=== PATIENT | female | born 1975 | race Caucasian/White ===

== ENCOUNTER 2017-08-04 13:39 | Emergency (ER) | payer BC ==
[2017-08-04 13:44] VITALS: RESP 18; TEMP 97.2
[2017-08-04 14:46] LABS: Basophils % (A) 0 %; Eosinophils # (A) 0.1 k/uL (0-0.7); Eosinophils % (A) 0 %; HCT 43.3 % (34.0-46.0); HGB 14.3 gm/dL (11.4-16.0); Lymphocytes # (A) 1.2 k/uL (1.0-4.8); Lymphocytes % (A) 8 %; MCH 30.1 pg (25.0-35.0); MCV 91.4 fL (80.0-100.0); Mean Platelet Volume 7.8; Monocytes # (A) 0.6 k/uL (0-1.0); Monocytes % (A) 4 %; Neutrophils # (A) 12.7 k/uL (1.3-7.7); Neutrophils % (A) 87 %; Platelet Count 241 k/uL (150-450); RBC 4.74 m/uL (3.80-5.40); RDW 12.8 % (11.5-15.5); WBC 14.6 k/uL (3.8-10.6)
--- NOTE | 2017-08-04 14:46 | XR ---
EXAMINATION TYPE: XR chest 2V DATE OF EXAM: 08/04/2017 COMPARISON: NONE HISTORY: Chest pain and shortness of breath TECHNIQUE: Frontal and lateral views of the chest are obtained. FINDINGS: There is no focal air space opacity, pleural effusion, or pneumothorax seen. The cardiac silhouette size is within normal limits. There is a slight spinal curvature. The osseous structures are intact. IMPRESSION: No acute cardiopulmonary process.
[2017-08-04 14:55] LABS: ALT 21 U/L (9-52); AST 29 U/L (14-36); Albumin 4.7 g/dL (3.5-5.0); Alkaline Phosphatase 53 U/L (38-126); Anion Gap 15 mmol/L; Blood Urea Nitrogen 19 mg/dL (7-17); Calcium 9.9 mg/dL (8.4-10.2); Carbon Dioxide 20 mmol/L (22-30); Chloride 103 mmol/L (98-107); Glucose 100 mg/dL (74-99); Potassium 4.6 mmol/L (3.5-5.1); Sodium 138 mmol/L (137-145); Total Bilirubin 0.6 mg/dL (0.2-1.3); Total Protein 7.6 g/dL (6.3-8.2)
[2017-08-04 15:02] LABS: INR 1.1 (<1.2); Partial Thromboplastin Time 21.6 sec (22.0-30.0); Prothrombin Time 10.4 sec (9.0-12.0)
[2017-08-04] MEDS ORDERED: SODIUM CHLORIDE 0.9% 1,000 ML IV ONE (15:16)
--- NOTE | 2017-08-04 15:29 | ED ---
General Adult HPI - General Chief complaint: Chest Pain Stated complaint: Chest Pain, SOB Time Seen by Provider: 08/04/17 15:09 Source: patient, RN notes reviewed Mode of arrival: wheelchair Limitations: no limitations - History of Present Illness Initial comments: 42-year-old female presenting for evaluation of chest pain. Patient is otherwise healthy, no chronic medical issues. She was at the gym today doing a fairly intense exercise, she developed some anterior chest pain. Pain was nonradiating. She was feeling somewhat dyspneic at the time. States she left the gym secondary to his symptoms, on her way home she did feel lightheaded, she had bilateral upper extremity numbness and tingling, and when she went home she had near syncopal episode. Patient states he exercises was quite intense, she is also on a herbal cleansing diet at this time. She states she has been eating and drinking normally. No significant preceding vomiting or diarrhea. No history of fever. She did have a mild sore throat yesterday which is resolved. Patient is currently not on any medication. She denies any lower extremity swelling, no calf tenderness, no abdominal pain. Chest pain and dysuria is improving at the time my evaluation. - Related Data Home Medications Medication Instructions Recorded Confirmed Parastroy Detox Cleanser 2 cap PO BID 08/04/17 08/04/17 Allergies Allergy/AdvReac Type Severity Reaction Status Date / Time No Known Allergies Allergy Verified 08/04/17 15:20 Review of Systems ROS Statement: Those systems with pertinent positive or pertinent negative responses have been documented in the HPI. ROS Other: All systems not noted in ROS Statement are negative. Past Medical History Past Medical History: No Reported History History of Any Multi-Drug Resistant Organisms: None Reported Past Surgical History: Breast Surgery Additional Past Surgical History / Comment(s): wisdom teeth removed 2007, patient had a D&C and a breast biopsy. Past Anesthesia/Blood Transfusion Reactions: No Reported Reaction Past Psychological History: Depression Smoking Status: Former smoker Past Alcohol Use History: Occasional Past Drug Use History: None Reported General Exam Limitations: no limitations General appearance: alert, in no apparent distress Head exam: Present: atraumatic, normocephalic Eye exam: Present: normal appearance, PERRL, EOMI ENT exam: Present: mucous membranes dry Neck exam: Present: normal inspection. Absent: tenderness, meningismus Respiratory exam: Present: normal lung sounds bilaterally. Absent: respiratory distress, wheezes Cardiovascular Exam: Present: regular rate, other (Bilateral symmetric radial pulse.). Absent: normal rhythm GI/Abdominal exam: Present: soft. Absent: distended, tenderness Extremities exam: Present: normal inspection, normal capillary refill. Absent: pedal edema, calf tenderness Neurological exam: Present: alert, oriented X3, CN II-XII intact. Absent: motor sensory deficit Psychiatric exam: Present: normal affect, normal mood Skin exam: Present: warm, dry, intact. Absent: cyanosis, diaphoretic Course Vital Signs 08/04/17 08/04/17 13:41 16:15 Temperature 97.2 F L Pulse Rate 78 59 L Respiratory 18 18 Rate Blood Pressure 126/74 115/64 O2 Sat by Pulse 98 98 Oximetry - Reevaluation(s) Reevaluation #1: 08/04/17 16:50 On reevaluation, patient is chest pain-free without treatment, no dyspnea, stable vital signs. EKG Findings - EKG Comments: EKG Findings:: EKG shows normal sinus rhythm, rightward axis, ventricular rate of 60, MD interval 142, QS duration 76, QTC 425, no ST segment elevation or depression, no T-wave abnormality. Medical Decision Making - Medical Decision Making 42-year-old female presents for evaluation of chest pain dyspnea and near syncope. Patient is currently on a herbal cleanse designed to destroy intestinal parasites. She does report loose stools. While exercising today she developed some central chest pain with dyspnea and had an episode of near syncope at home. Laboratory studies reveal mild elevated white blood cell count likely secondary to exertion worse infection. Hemoglobin stable, d-dimer is negative. CO2 20 which is mildly low. Troponin negative, CK is 199, urinalysis shows 1+ ketones, urine test is negative, influenza negative. Chest x-ray shows no acute intrathoracic findings. Patient feels better in the emergency department without treatment. She is given IV hydration for signs of dehydration. She will return with any worsening or changing symptoms. She will return with development of exertional chest pain or chest pain at rest. She is given outpatient PCP follow-up. - Lab Data Result diagrams: 08/04/17 14:26 08/04/17 14:26 Lab Results 08/04/17 08/04/17 08/04/17 Range/Units 14:26 14:26 14:26 WBC 14.6 H (3.8-10.6) k/uL RBC 4.74 (3.80-5.40) m/uL Hgb 14.3 (11.4-16.0) gm/dL Hct 43.3 (34.0-46.0) % MCV 91.4 (80.0-100.0) fL MCH 30.1 (25.0-35.0) pg MCHC 33.0 (31.0-37.0) g/dL RDW 12.8 (11.5-15.5) % Plt Count 241 (150-450) k/uL Neutrophils % 87 % Lymphocytes % 8 % Monocytes % 4 % Eosinophils % 0 % Basophils % 0 % Neutrophils # 12.7 H (1.3-7.7) k/uL Lymphocytes # 1.2 (1.0-4.8) k/uL Monocytes # 0.6 (0-1.0) k/uL Eosinophils # 0.1 (0-0.7) k/uL Basophils # 0.0 (0-0.2) k/uL PT (9.0-12.0) sec INR (<1.2) APTT (22.0-30.0) sec D-Dimer (<0.60) mg/L FEU Sodium 138 (137-145) mmol/L Potassium 4.6 (3.5-5.1) mmol/L Chloride 103 (98-107) mmol/L Carbon Dioxide 20 L (22-30) mmol/L Anion Gap 15 mmol/L BUN 19 H (7-17) mg/dL Creatinine 0.83 (0.52-1.04) mg/dL Est GFR (CKD-EPI)AfAm >90 (>60 ml/min/1.73 sqM) Est GFR (CKD-EPI)NonAf 88 (>60 ml/min/1.73 sqM) Glucose 100 H (74-99) mg/dL Calcium 9.9 (8.4-10.2) mg/dL Total Bilirubin 0.6 (0.2-1.3) mg/dL AST 29 (14-36) U/L ALT 21 (9-52) U/L Alkaline Phosphatase 53 (38-126) U/L Total Creatine Kinase 199 H (30-135) U/L CK-MB (CK-2) 1.5 (0.0-2.4) ng/mL CK-MB (CK-2) Rel Index 0.8 Troponin I <0.012 (0.000-0.034) ng/mL Total Protein 7.6 (6.3-8.2) g/dL Albumin 4.7 (3.5-5.0) g/dL Urine Color Urine Appearance (Clear) Urine pH (5.0-8.0) Ur Specific [place] (1.001-1.035) Urine Protein (Negative) Urine Glucose (UA) (Negative) Urine Ketones (Negative) Urine Blood (Negative) Urine Nitrite (Negative) Urine Bilirubin (Negative) Urine Urobilinogen (<2.0) mg/dL Ur Leukocyte Esterase (Negative) Urine HCG, Qual (Not Detectd) Influenza Type A RNA (Not Detectd) Influenza Type B (PCR) (Not Detectd) 08/04/17 08/04/17 08/04/17 Range/Units 14:26 14:26 15:35 WBC (3.8-10.6) k/uL RBC (3.80-5.40) m/uL Hgb (11.4-16.0) gm/dL Hct (34.0-46.0) % MCV (80.0-100.0) fL MCH (25.0-35.0) pg MCHC (31.0-37.0) g/dL RDW (11.5-15.5) % Plt Count (150-450) k/uL Neutrophils % % Lymphocytes % % Monocytes % % Eosinophils % % Basophils % % Neutrophils # (1.3-7.7) k/uL Lymphocytes # (1.0-4.8) k/uL Monocytes # (0-1.0) k/uL Eosinophils # (0-0.7) k/uL Basophils # (0-0.2) k/uL PT 10.4 (9.0-12.0) sec INR 1.1 (<1.2) APTT 21.6 L (22.0-30.0) sec D-Dimer 0.38 (<0.60) mg/L FEU Sodium (137-145) mmol/L Potassium (3.5-5.1) mmol/L Chloride (98-107) mmol/L Carbon Dioxide (22-30) mmol/L Anion Gap mmol/L BUN (7-17) mg/dL Creatinine (0.52-1.04) mg/dL Est GFR (CKD-EPI)AfAm (>60 ml/min/1.73 sqM) Est GFR (CKD-EPI)NonAf (>60 ml/min/1.73 sqM) Glucose (74-99) mg/dL Calcium (8.4-10.2) mg/dL Total Bilirubin (0.2-1.3) mg/dL AST (14-36) U/L ALT (9-52) U/L Alkaline Phosphatase (38-126) U/L Total Creatine Kinase (30-135) U/L CK-MB (CK-2) (0.0-2.4) ng/mL CK-MB (CK-2) Rel Index Troponin I (0.000-0.034) ng/mL Total Protein (6.3-8.2) g/dL Albumin (3.5-5.0) g/dL Urine Color Urine Appearance (Clear) Urine pH (5.0-8.0) Ur Specific [place] (1.001-1.035) Urine Protein (Negative) Urine Glucose (UA) (Negative) Urine Ketones (Negative) Urine Blood (Negative) Urine Nitrite (Negative) Urine Bilirubin (Negative) Urine Urobilinogen (<2.0) mg/dL Ur Leukocyte Esterase (Negative) Urine HCG, Qual Not Detected (Not Detectd) Influenza Type A RNA (Not Detectd) Influenza Type B (PCR) (Not Detectd) 08/04/17 08/04/17 Range/Units 15:35 16:10 WBC (3.8-10.6) k/uL RBC (3.80-5.40) m/uL Hgb (11.4-16.0) gm/dL Hct (34.0-46.0) % MCV (80.0-100.0) fL MCH (25.0-35.0) pg MCHC (31.0-37.0) g/dL RDW (11.5-15.5) % Plt Count (150-450) k/uL Neutrophils % % Lymphocytes % % Monocytes % % Eosinophils % % Basophils % % Neutrophils # (1.3-7.7) k/uL Lymphocytes # (1.0-4.8) k/uL Monocytes # (0-1.0) k/uL Eosinophils # (0-0.7) k/uL Basophils # (0-0.2) k/uL PT (9.0-12.0) sec INR (<1.2) APTT (22.0-30.0) sec D-Dimer (<0.60) mg/L FEU Sodium (137-145) mmol/L Potassium (3.5-5.1) mmol/L Chloride (98-107) mmol/L Carbon Dioxide (22-30) mmol/L Anion Gap mmol/L BUN (7-17) mg/dL Creatinine (0.52-1.04) mg/dL Est GFR (CKD-EPI)AfAm (>60 ml/min/1.73 sqM) Est GFR (CKD-EPI)NonAf (>60 ml/min/1.73 sqM) Glucose (74-99) mg/dL Calcium (8.4-10.2) mg/dL Total Bilirubin (0.2-1.3) mg/dL AST (14-36) U/L ALT (9-52) U/L Alkaline Phosphatase (38-126) U/L Total Creatine Kinase (30-135) U/L CK-MB (CK-2) (0.0-2.4) ng/mL CK-MB (CK-2) Rel Index Troponin I (0.000-0.034) ng/mL Total Protein (6.3-8.2) g/dL Albumin (3.5-5.0) g/dL Urine Color Yellow Urine Appearance Clear (Clear) Urine pH 5.5 (5.0-8.0) Ur Specific [place] 1.014 (1.001-1.035) Urine Protein Negative (Negative) Urine Glucose (UA) Negative (Negative) Urine Ketones 1+ H (Negative) Urine Blood Negative (Negative) Urine Nitrite Negative (Negative) Urine Bilirubin Negative (Negative) Urine Urobilinogen <2.0 (<2.0) mg/dL Ur Leukocyte Esterase Negative (Negative) Urine HCG, Qual (Not Detectd) Influenza Type A RNA Not Detected (Not Detectd) Influenza Type B (PCR) Not Detected (Not Detectd) Disposition Clinical Impression: Chest pain, Dehydration, Near syncope Disposition: HOME SELF-CARE Condition: Good Instructions: Chest Pain (ED), Near Syncope (ED), Dehydration (ED) Referrals: None,Stated [Primary Care Provider] - 1-2 days Robyn Clancy MD [STAFF PHYSICIAN] - 1-2 days Time of Disposition: 16:53
[2017-08-04 15:31] LABS: Creatine Kinase 199 U/L (30-135)
[2017-08-04 15:39] LABS: Creatine Kinase MB 1.5 ng/mL (0.0-2.4)
[2017-08-04 15:44] LABS: Troponin I <0.012 ng/mL (0.000-0.034)
[2017-08-04 16:06] LABS: Appearance,Urine Clear (Clear); Bilirubin,Urine Negative (Negative); Blood,Urine Negative (Negative); Color,Urine Yellow; Glucose,Urine (UA) Negative (Negative); Ketones,Urine 1+ (Negative); Leukocyte Esterase,Urine Negative (Negative); Nitrite,Urine Negative (Negative); PH, Urine 5.5 (5.0-8.0); Protein,Urine Negative (Negative); Specific Gravity,Urine 1.014 (1.001-1.035); Urobilinogen,Urine <2.0 mg/dL (<2.0)
[2017-08-04 17:17] VITALS: BP 117/59; PULSE 57
== END 2017-08-04 17:15 | disposition home or self-care (01) ==
LOC: EC 13:39
DX: E86.0 Dehydration (principal); R07.9 Chest pain, unspecified; R55 Syncope and collapse; D72.829 Elevated white blood cell count, unspecified; R06.00 Dyspnea, unspecified; R20.2 Paresthesia of skin; R30.0 Dysuria; Z87.891 Personal history of nicotine dependence
CPT/HCPCS: 36415; 71046; 80053; 81003; 81025; 82550; 82553; 84484; 85025; 85379; 85610; 85730; 87502; 93005; 96360; 99285

== ENCOUNTER 2018-02-04 15:02 | Emergency (ER) | payer BC ==
[2018-02-04] MEDS ORDERED: SODIUM CHLORIDE 0.9% 1,000 ML IV STA (15:33)
[2018-02-04 15:54] LABS: Basophils % (A) 0 %; Eosinophils # (A) 0.1 k/uL (0-0.7); Eosinophils % (A) 2 %; HCT 42.2 % (34.0-46.0); HGB 14.3 gm/dL (11.4-16.0); Lymphocytes # (A) 1.8 k/uL (1.0-4.8); Lymphocytes % (A) 30 %; MCH 31.7 pg (25.0-35.0); MCV 93.2 fL (80.0-100.0); Mean Platelet Volume 7.5; Monocytes # (A) 0.3 k/uL (0-1.0); Monocytes % (A) 6 %; Neutrophils # (A) 3.6 k/uL (1.3-7.7); Neutrophils % (A) 60 %; Platelet Count 193 k/uL (150-450); RBC 4.52 m/uL (3.80-5.40); RDW 12.6 % (11.5-15.5)
[2018-02-04 16:03] LABS: ALT 22 U/L (9-52); AST 22 U/L (14-36); Albumin 4.5 g/dL (3.5-5.0); Alkaline Phosphatase 42 U/L (38-126); Anion Gap 10 mmol/L; Blood Urea Nitrogen 14 mg/dL (7-17); Calcium 9.6 mg/dL (8.4-10.2); Carbon Dioxide 25 mmol/L (22-30); Chloride 106 mmol/L (98-107); Glucose 84 mg/dL (74-99); Lipase 156 U/L (23-300); Magnesium 1.9 mg/dL (1.6-2.3); Potassium 3.9 mmol/L (3.5-5.1); Sodium 141 mmol/L (137-145); Total Bilirubin 0.7 mg/dL (0.2-1.3); Total Protein 7.4 g/dL (6.3-8.2)
[2018-02-04 16:08] LABS: D-Dimer 0.23 mg/L FEU (<0.60); INR 1.1 (<1.2); Partial Thromboplastin Time 24.2 sec (22.0-30.0); Prothrombin Time 10.8 sec (9.0-12.0)
[2018-02-04 16:13] LABS: Creatine Kinase 58 U/L (30-135)
[2018-02-04 16:26] LABS: Creatine Kinase MB 0.5 ng/mL (0.0-2.4); Troponin I <0.012 ng/mL (0.000-0.034)
--- NOTE | 2018-02-04 16:30 | XR ---
EXAMINATION TYPE: XR chest 2V DATE OF EXAM: 02/04/2018 COMPARISON: 08/04/2017 HISTORY: Chest pain TECHNIQUE: Frontal and lateral views of the chest are obtained. FINDINGS: There is no focal air space opacity. No evidence for pneumothorax. No pleural effusion. The cardiac silhouette size is within normal limits. The osseous structures are grossly intact. IMPRESSION: 1. No acute cardiopulmonary process.
[2018-02-04 16:50] VITALS: RESP 16
--- NOTE | 2018-02-04 16:50 | ED ---
General Adult HPI - General Chief complaint: Dizziness Stated complaint: chest tightness/dizziness-sent by [employer] Time Seen by Provider: 02/04/18 15:28 Source: patient Mode of arrival: ambulatory Limitations: no limitations - Related Data Home Medications Medication Instructions Recorded Confirmed No Known Home Medications 02/04/18 02/04/18 Allergies Allergy/AdvReac Type Severity Reaction Status Date / Time No Known Allergies Allergy Verified 02/04/18 15:19 Review of Systems ROS Statement: Those systems with pertinent positive or pertinent negative responses have been documented in the HPI. ROS Other: All systems not noted in ROS Statement are negative. Past Medical History Past Medical History: No Reported History History of Any Multi-Drug Resistant Organisms: None Reported Past Surgical History: Breast Surgery Additional Past Surgical History / Comment(s): wisdom teeth removed 2007, patient had a D&C and a breast biopsy. Past Anesthesia/Blood Transfusion Reactions: No Reported Reaction Past Psychological History: Depression Smoking Status: Former smoker Past Alcohol Use History: Occasional Past Drug Use History: None Reported General Exam Limitations: no limitations General appearance: alert, in no apparent distress Head exam: Present: atraumatic, normocephalic, normal inspection Eye exam: Present: normal appearance, PERRL, EOMI. Absent: scleral icterus, conjunctival injection, periorbital swelling ENT exam: Present: normal exam, mucous membranes moist Neck exam: Present: normal inspection. Absent: tenderness, meningismus, lymphadenopathy Respiratory exam: Present: normal lung sounds bilaterally. Absent: respiratory distress, wheezes, rales, rhonchi, stridor Cardiovascular Exam: Present: regular rate, normal rhythm, normal heart sounds. Absent: systolic murmur, diastolic murmur, rubs, gallop, clicks GI/Abdominal exam: Present: soft, normal bowel sounds. Absent: distended, tenderness, guarding, rebound, rigid Extremities exam: Present: normal inspection, full ROM, normal capillary refill. Absent: tenderness, pedal edema, joint swelling, calf tenderness Back exam: Present: normal inspection Neurological exam: Present: alert, oriented X3, CN II-XII intact Psychiatric exam: Present: normal affect, normal mood Skin exam: Present: warm, dry, intact, normal color. Absent: rash Course Vital Signs 02/04/18 02/04/18 15:04 16:49 Temperature 98.2 F Pulse Rate 67 66 Respiratory 18 16 Rate Blood Pressure 139/73 149/56 O2 Sat by Pulse 99 99 Oximetry EKG Findings - EKG Comments: EKG Findings:: EKG shows sinus bradycardia rate 56 [place] 138 QRS 80 QTC 418 Medical Decision Making - Lab Data Result diagrams: 02/04/18 15:40 02/04/18 15:40 Lab Results 02/04/18 02/04/18 02/04/18 Range/Units 15:40 15:40 15:40 WBC 6.0 (3.8-10.6) k/uL RBC 4.52 (3.80-5.40) m/uL Hgb 14.3 (11.4-16.0) gm/dL Hct 42.2 (34.0-46.0) % MCV 93.2 (80.0-100.0) fL MCH 31.7 (25.0-35.0) pg MCHC 34.0 (31.0-37.0) g/dL RDW 12.6 (11.5-15.5) % Plt Count 193 (150-450) k/uL Neutrophils % 60 % Lymphocytes % 30 % Monocytes % 6 % Eosinophils % 2 % Basophils % 0 % Neutrophils # 3.6 (1.3-7.7) k/uL Lymphocytes # 1.8 (1.0-4.8) k/uL Monocytes # 0.3 (0-1.0) k/uL Eosinophils # 0.1 (0-0.7) k/uL Basophils # 0.0 (0-0.2) k/uL PT (9.0-12.0) sec INR (<1.2) APTT (22.0-30.0) sec D-Dimer (<0.60) mg/L FEU Sodium 141 (137-145) mmol/L Potassium 3.9 (3.5-5.1) mmol/L Chloride 106 (98-107) mmol/L Carbon Dioxide 25 (22-30) mmol/L Anion Gap 10 mmol/L BUN 14 (7-17) mg/dL Creatinine 0.83 (0.52-1.04) mg/dL Est GFR (CKD-EPI)AfAm >90 (>60 ml/min/1.73 sqM) Est GFR (CKD-EPI)NonAf 88 (>60 ml/min/1.73 sqM) Glucose 84 (74-99) mg/dL Calcium 9.6 (8.4-10.2) mg/dL Magnesium 1.9 (1.6-2.3) mg/dL Total Bilirubin 0.7 (0.2-1.3) mg/dL AST 22 (14-36) U/L ALT 22 (9-52) U/L Alkaline Phosphatase 42 (38-126) U/L Total Creatine Kinase 58 (30-135) U/L CK-MB (CK-2) 0.5 (0.0-2.4) ng/mL CK-MB (CK-2) Rel Index 0.9 Troponin I <0.012 (0.000-0.034) ng/mL Total Protein 7.4 (6.3-8.2) g/dL Albumin 4.5 (3.5-5.0) g/dL Lipase 156 (23-300) U/L 02/04/18 Range/Units 15:40 WBC (3.8-10.6) k/uL RBC (3.80-5.40) m/uL Hgb (11.4-16.0) gm/dL Hct (34.0-46.0) % MCV (80.0-100.0) fL MCH (25.0-35.0) pg MCHC (31.0-37.0) g/dL RDW (11.5-15.5) % Plt Count (150-450) k/uL Neutrophils % % Lymphocytes % % Monocytes % % Eosinophils % % Basophils % % Neutrophils # (1.3-7.7) k/uL Lymphocytes # (1.0-4.8) k/uL Monocytes # (0-1.0) k/uL Eosinophils # (0-0.7) k/uL Basophils # (0-0.2) k/uL PT 10.8 (9.0-12.0) sec INR 1.1 (<1.2) APTT 24.2 (22.0-30.0) sec D-Dimer 0.23 (<0.60) mg/L FEU Sodium (137-145) mmol/L Potassium (3.5-5.1) mmol/L Chloride (98-107) mmol/L Carbon Dioxide (22-30) mmol/L Anion Gap mmol/L BUN (7-17) mg/dL Creatinine (0.52-1.04) mg/dL Est GFR (CKD-EPI)AfAm (>60 ml/min/1.73 sqM) Est GFR (CKD-EPI)NonAf (>60 ml/min/1.73 sqM) Glucose (74-99) mg/dL Calcium (8.4-10.2) mg/dL Magnesium (1.6-2.3) mg/dL Total Bilirubin (0.2-1.3) mg/dL AST (14-36) U/L ALT (9-52) U/L Alkaline Phosphatase (38-126) U/L Total Creatine Kinase (30-135) U/L CK-MB (CK-2) (0.0-2.4) ng/mL CK-MB (CK-2) Rel Index Troponin I (0.000-0.034) ng/mL Total Protein (6.3-8.2) g/dL Albumin (3.5-5.0) g/dL Lipase (23-300) U/L Disposition Clinical Impression: Chest pain, Anxiety Disposition: HOME SELF-CARE Condition: Good Instructions: Dizziness (ED), Chest Pain (ED) Is patient prescribed a controlled substance at d/c from ED?: No Referrals: None,Stated [Primary Care Provider] - 1-2 days
--- NOTE | 2018-02-04 18:35 | CT ---
EXAMINATION TYPE: CT angio chest DATE OF EXAM: 02/04/2018 6:15 PM COMPARISON: None HISTORY: c/o chest tightness, discomfot, dizziness CT DLP: 191.4 mGycm Automated exposure control for dose reduction was used. CONTRAST: CTA scan of the thorax is performed with IV Contrast, patient injected with 60 mL of Isovue 370, pulm onary embolism protocol. There are 3-D post processed images.. FINDINGS: The lungs are clear of infiltrate. There is no pleural effusion. There is no pericardial effusion. He art size is normal. Thoracic aorta appears normal without evidence of aneurysm or dissection. There a re no hilar masses. There is no mediastinal adenopathy. There is normal contrast opacification of the pulmonary arteries. There are no filling defects. The b joshua thorax is intact. I see no bony destructive process. Upper abdominal soft tissues are unremarkabl e. IMPRESSION: NORMAL EXAM. NO EVIDENCE OF PULMONARY EMBOLISM.
[2018-02-04 19:02] VITALS: BP 129/69; PULSE 60; TEMP 98
== END 2018-02-04 19:00 | disposition home or self-care (01) ==
LOC: EC 15:02
DX: R07.89 Other chest pain (principal); F41.9 Anxiety disorder, unspecified; R42 Dizziness and giddiness; Z87.891 Personal history of nicotine dependence
CPT/HCPCS: 36415; 93005; 85379; 80053; 82550; 82553; 83690; 83735; 84484; 85025; 85610; 85730; 71046; 71275; 99284; 96360; Q9967

== ENCOUNTER → 2018-06-24 | Outpatient (CLI) | payer BC ==
--- NOTE | 2018-06-28 09:26 | MM ---
Reason for exam: screening (asymptomatic). Last mammogram was performed 6 years and 4 months ago. History: Patient had first child at age 33. Family history of breast cancer in maternal grandmother. Benign excisional biopsy of the right breast, 2012. Physical Findings: A clinical breast exam by your physician is recommended on an annual basis and results should be correlated with mammographic findings. MG 3D Screening Mammo W/Cad Bilateral CC and MLO view(s) were taken. Prior study comparison: February 24, 2012, mammogram, performed at [facility]. February 17, 2012, mammogram, performed at [facility]. The breast tissue is heterogeneously dense. This may lower the sensitivity of mammography. Previous mammotome biopsy in the right breast. Asymmetric densities left breast particularly medially do not persist on 3D. No significant changes when compared with prior studies. ASSESSMENT: Negative, BI-RAD 1 RECOMMENDATION: Routine screening mammogram of both breasts in 1 year. Patient should continue monthly self breast exams. A negative report should not preclude additional follow up of suspicious palpable abnormalities. Manage on a clinical basis with regard to right breast pain.
== END | disposition home or self-care (01) ==
LOC: RADMAMWWP 15:38
PROVIDERS: ATTEND Obstetrics & Gynecology
DX: Z12.31 Encounter for screening mammogram for malignant neoplasm of breast (principal)
CPT/HCPCS: 77063; 77067

== ENCOUNTER 2018-10-10 00:57 | Emergency (ER) | payer BC ==
[2018-10-10] MEDS ORDERED: KETOROLAC 30 MG/ML 1 ML VIAL IVP STA (01:36)
[2018-10-10] MEDS ORDERED: DEXAMETHASONE SOD PHOSPHATE 10 MG/ML 1 ML VIAL IV STA (01:36)
[2018-10-10] MEDS ORDERED: SODIUM CHLORIDE 0.9% 1,000 ML IV ONE (01:36)
[2018-10-10 02:04] LABS: Basophils % (A) 0 %; Eosinophils # (A) 0.2 k/uL (0-0.7); Eosinophils % (A) 4 %; HGB 13.2 gm/dL (11.4-16.0); Lymphocytes # (A) 1.8 k/uL (1.0-4.8); Lymphocytes % (A) 37 %; MCHC 32.3 g/dL (31.0-37.0); MCV 92.7 fL (80.0-100.0); Mean Platelet Volume 7.5; Monocytes # (A) 0.3 k/uL (0-1.0); Monocytes % (A) 7 %; Neutrophils # (A) 2.4 k/uL (1.3-7.7); Neutrophils % (A) 50 %; Platelet Count 211 k/uL (150-450); RBC 4.42 m/uL (3.80-5.40); RDW 12.9 % (11.5-15.5); WBC 4.8 k/uL (3.8-10.6)
[2018-10-10 02:25] LABS: ALT 17 U/L (9-52); AST 19 U/L (14-36); Alkaline Phosphatase 48 U/L (38-126); Anion Gap 8 mmol/L; Blood Urea Nitrogen 17 mg/dL (7-17); Calcium 9.1 mg/dL (8.4-10.2); Carbon Dioxide 25 mmol/L (22-30); Chloride 109 mmol/L (98-107); Glucose 99 mg/dL (74-99); Potassium 4.1 mmol/L (3.5-5.1); Sodium 142 mmol/L (137-145); Total Bilirubin 0.3 mg/dL (0.2-1.3); Total Protein 6.6 g/dL (6.3-8.2)
--- NOTE | 2018-10-10 02:42 | CT ---
EXAM: CT Head Without Intravenous Contrast CLINICAL HISTORY: ITS.REASON CT Reason: Pain TECHNIQUE: Axial computed tomography images of the head/brain without intravenous contrast. CTDI is 45 mGy and DLP is 992 mGy-cm. This CT exam was performed using one or more of the following dose reduction techniques: automated exposure control, adjustment of the mA and/or kV according to patient size, and/or use of iterative reconstruction technique. COMPARISON: No relevant prior studies available. FINDINGS: Brain: No hemorrhage, large hypodensity, or mass effect. Ventricles: No hydrocephalus. Bones/joints: Unremarkable. Soft tissues: Unremarkable. Sinuses: Unremarkable. Mastoid air cells: Clear. IMPRESSION: No acute hemorrhage, hydrocephalus, or mass effect. EXAM: CT Cervical Spine Without Intravenous Contrast CLINICAL HISTORY: ITS.REASON CT Reason: Pain TECHNIQUE: Axial computed tomography images of the cervical spine without intravenous contrast. CTDI is 11 mGy and DLP is 337 mGy-cm. This CT exam was performed using one or more of the following dose reduction techniques: automated exposure control, adjustment of the mA and/or kV according to patient size, and/or use of iterative reconstruction technique. COMPARISON: No relevant prior studies available. FINDINGS: Vertebrae: No acute fracture. Discs/spinal canal/neural foramina: No high grade spinal canal stenosis. Soft tissues: Unremarkable. IMPRESSION: No acute fracture or subluxation.
--- NOTE | 2018-10-10 02:45 | ED ---
Headache HPI <Nick Hallman - Last Filed: 10/10/18 06:22> <Jose David Leslie - Last Filed: 10/10/18 08:27> - General Mode of arrival: ambulatory Limitations: no limitations <Zuleyma David - Last Filed: 10/12/18 05:51> - General Chief Complaint: Headache Stated Complaint: Headache Time Seen by Provider: 10/10/18 01:29 - History of Present Illness Initial Comments: 43-year-old female patient presents to the emergency department today for evaluation of headache and neck pain. Patient states she has had the headache for the last week. Patient states that the pain is located in the posterior head and radiates down into the neck. Patient states that as time has progressed that headache is becoming worse. She states on Wednesday she did feel nauseated and unwell. States she felt feverish and chilled however did not elvis ck her temperature. She states tonight while lying in bed prior to coming in she felt numbness and tingling to the bilateral hands. States that the sensation has improved however she still feels some numbness. She denies any light or sound sensitivity. Denies any blurred or double vision with this. Patient denies history of headache or migraine headache. Denies any recent travel. Denies any head injury. Patient denies any recent rash, shortness breath, chest pain, abdominal pain, diarrhea, constipation, back pain, dizziness, weakness, hematuria, dysuria, urinary urgency, urinary frequency, or any other complaints. (Zuleyma David) - Related Data Home Medications Medication Instructions Recorded Confirmed No Known Home Medications 02/04/18 10/11/18 Allergies Allergy/AdvReac Type Severity Reaction Status Date / Time No Known Allergies Allergy Verified 10/11/18 14:39 Review of Systems ROS Other: All systems not noted in ROS Statement are negative. <Nick Hallman - Last Filed: 10/10/18 06:22> ROS Other: All systems not noted in ROS Statement are negative. <Jose David Leslie - Last Filed: 10/10/18 08:27> ROS Other: All systems not noted in ROS Statement are negative. <Zuleyma David - Last Filed: 10/12/18 05:51> ROS Statement: Those systems with pertinent positive or pertinent negative responses have been documented in the HPI. Past Medical History Past Medical History: No Reported History, Syncope History of Any Multi-Drug Resistant Organisms: None Reported Past Surgical History: Breast Surgery Additional Past Surgical History / Comment(s): wisdom teeth removed 2007, patient had a D&C and a breast biopsy. Past Anesthesia/Blood Transfusion Reactions: No Reported Reaction Past Psychological History: Depression Smoking Status: Former smoker Past Alcohol Use History: Occasional Past Drug Use History: None Reported <Zuleyma David M - Last Filed: 10/12/18 05:51> General Exam Limitations: no limitations General appearance: alert, in no apparent distress, other (Physical well- developed, well-nourished adult female patient in no acute distress. Vital signs upon presentation are temperature 97.3F, pulse 79, respirations 17, blood pressure 135/77, pulse ox 98% on room air.) Eye exam: Present: normal appearance, PERRL, EOMI. Absent: scleral icterus, conjunctival injection, nystagmus, periorbital swelling ENT exam: Present: normal exam, normal oropharynx, mucous membranes moist, TM's normal bilaterally Neck exam: Present: normal inspection, full ROM. Absent: tenderness, meningismus, lymphadenopathy Respiratory exam: Present: normal lung sounds bilaterally. Absent: respiratory distress, wheezes, rales, rhonchi, stridor Cardiovascular Exam: Present: regular rate, normal rhythm, normal heart sounds. Absent: systolic murmur, diastolic murmur, rubs, gallop, clicks GI/Abdominal exam: Present: soft, normal bowel sounds. Absent: distended, tenderness, guarding, rebound, rigid Neurological exam: Present: alert, oriented X3, CN II-XII intact, other (Strength in all four extremities is 5/5.) Psychiatric exam: Present: normal affect, normal mood Skin exam: Present: warm, dry, intact, normal color. Absent: rash <Zuleyma David M - Last Filed: 10/12/18 05:51> Course Vital Signs 10/10/18 10/10/18 10/10/18 01:00 08:15 08:35 Temperature 97.3 F L 98.6 F Pulse Rate 79 62 Respiratory 17 18 Rate Blood Pressure 135/77 121/67 O2 Sat by Pulse 98 95 Oximetry Procedures - Lumbar Puncture Consent Obtained: verbal consent, written consent Indication for Procedure: headache, R/o SA bleed Patient Position: sitting upright/leaning forward Skin Prep: 0.5% Chlorhexidine/Alcohol Local Anesthetic Used: Lidocaine 1% Spinal Needle Gauge: 20G Spinal Needle Length: 3.5in Interspace Used: L4-L5 Fluid Initially Obtained: bloody Complications: none, traumatic tap Patient Tolerated Procedure: well, no complications <Nick Hallman - Last Filed: 10/10/18 06:22> Medical Decision Making - Lab Data Result diagrams: 10/10/18 01:47 10/10/18 01:47 <Nick Hallman - Last Filed: 10/10/18 06:22> - Lab Data Result diagrams: 10/10/18 01:47 10/10/18 01:47 <Jose David Leslie - Last Filed: 10/10/18 08:27> - Lab Data Result diagrams: 10/10/18 01:47 10/10/18 01:47 <Zuleyma David - Last Filed: 10/12/18 05:51> - Medical Decision Making 43 year-old female patient presented to the emergency department for evaluation of headache and neck pain which has been present for one week. Physical exam is unremarkable she is neurologically intact with no focal deficits. Labs reviewed and were unremarkable. CT brain and cspine was unremarkable. Patient does report improvement of symptoms with medication. We did discuss lumbar puncture including risks and benefits of the procedure. Patient would like to have this test done. My attending Dr. Hallman will take over care of patient at 0500. He will perform the procedure and monitor. (Zuleyma David) - Lab Data Lab Results 10/10/18 10/10/18 10/10/18 Range/Units 01:47 01:47 06:18 WBC 4.8 (3.8-10.6) k/uL RBC 4.42 (3.80-5.40) m/uL Hgb 13.2 (11.4-16.0) gm/dL Hct 41.0 (34.0-46.0) % MCV 92.7 (80.0-100.0) fL MCH 30.0 (25.0-35.0) pg MCHC 32.3 (31.0-37.0) g/dL RDW 12.9 (11.5-15.5) % Plt Count 211 (150-450) k/uL Neutrophils % 50 % Lymphocytes % 37 % Monocytes % 7 % Eosinophils % 4 % Basophils % 0 % Neutrophils # 2.4 (1.3-7.7) k/uL Lymphocytes # 1.8 (1.0-4.8) k/uL Monocytes # 0.3 (0-1.0) k/uL Eosinophils # 0.2 (0-0.7) k/uL Basophils # 0.0 (0-0.2) k/uL Sodium 142 (137-145) mmol/L Potassium 4.1 (3.5-5.1) mmol/L Chloride 109 H (98-107) mmol/L Carbon Dioxide 25 (22-30) mmol/L Anion Gap 8 mmol/L BUN 17 (7-17) mg/dL Creatinine 0.80 (0.52-1.04) mg/dL Est GFR (CKD-EPI)AfAm >90 (>60 ml/min/1.73 sqM) Est GFR (CKD-EPI)NonAf >90 (>60 ml/min/1.73 sqM) Glucose 99 (74-99) mg/dL Calcium 9.1 (8.4-10.2) mg/dL Total Bilirubin 0.3 (0.2-1.3) mg/dL AST 19 (14-36) U/L ALT 17 (9-52) U/L Alkaline Phosphatase 48 (38-126) U/L Total Protein 6.6 (6.3-8.2) g/dL Albumin 4.0 (3.5-5.0) g/dL CSF Tube Number 4 CSF Volume 2.0 CSF Appearance CLEAR CSF Color COLORLESS CSF RBC 13 H (0-10) u/L CSF Tot Nucleated Cells 0 (0-5) u/L CSF Fresh RBCs 100 % CSF Glucose 57 (40-70) mg/dL CSF Total Protein 57 (12-60) mg/dL Disposition <Nick Hallman - Last Filed: 10/10/18 06:22> Is patient prescribed a controlled substance at d/c from ED?: No Time of Disposition: 08:28 <Jose David Leslie - Last Filed: 10/10/18 08:27> <Zuleyma David - Last Filed: 10/12/18 05:51> Clinical Impression: Headache Disposition: HOME SELF-CARE Condition: Stable Instructions (If sedation given, give patient instructions): Acute Headache (ED) Additional Instructions: Please return to the Emergency Department if symptoms worsen or any other concerns. Referrals: None,Stated [Primary Care Provider] - 1-2 days Silvio Felix MD [STAFF PHYSICIAN] - 1-2 days Marcello Flores DO [STAFF PHYSICIAN] - 1-2 days
[2018-10-10] MEDS ORDERED: LIDOCAINE 1% INJ 10MG/ML (20 ML MDV) SQ ONE (04:31)
[2018-10-10] MEDS ORDERED: METOCLOPRAMIDE 5 MG/ML 2 ML VIAL IVP STA (06:22)
[2018-10-10] MEDS ORDERED: diphenhydrAMINE 50 MG/ML 1 ML VIAL IVP STA (06:22)
[2018-10-10 06:54] LABS: Glucose,CSF 57 mg/dL (40-70); Total Protein,CSF 57 mg/dL (12-60)
[2018-10-10 07:16] LABS: Appearance,CSF CLEAR; CSF Tube Number 4; Nucleated Cells, CSF 0 u/L (0-5); Red Blood Cell,CSF 13 u/L (0-10)
[2018-10-10 07:17] LABS: Red Blood Cell, CSF Fresh 100 %
[2018-10-10 08:19] VITALS: BP 121/67; PULSE 62; RESP 18
[2018-10-10 08:51] VITALS: TEMP 98.6
[2018-10-11] MEDS ORDERED: CAFFEINE-SODIUM BENZOATE 500 MG in SODIUM CHLORIDE 0.9% 1,000 ML IVPB ONE (16:00)
== END 2018-10-10 08:35 | disposition home or self-care (01) ==
LOC: EC 00:57
DX: R51 Headache (principal); M54.2 Cervicalgia; R20.0 Anesthesia of skin; R50.9 Fever, unspecified; Z87.891 Personal history of nicotine dependence; Z53.29 Procedure and treatment not carried out because of patient's decision for other reasons
CPT/HCPCS: 36415; 84157; 80053; 82945; 85025; 89050; 87070; 87205; 87801; 72125; 70450; 99284; 62270; 96374; 96375 ×3; 96361 ×6; J1200; J1100; J2765; J1885

== ENCOUNTER 2018-10-11 13:56 | Emergency (ER) | payer BC ==
[2018-10-11] MEDS ORDERED: ONDANSETRON 4 MG/2 ML VIAL ONE (15:45)
[2018-10-11] MEDS ORDERED: diphenhydrAMINE 50 MG/ML 1 ML VIAL ONE (15:45)
[2018-10-11] MEDS ORDERED: CAFFEINE ONE (16:00)
[2018-10-11] MEDS ORDERED: SODIUM CHLORIDE 0.9% 1,000 ML BAG ONE (16:00)
[2018-10-11] MEDS ORDERED: SODIUM BENZOATE ONE (16:00)
[2018-10-11] MEDS ORDERED: SODIUM CHLORIDE 0.9% 500 ML BAG ONE (16:00)
[2018-10-11] MEDS ORDERED: HYDROmorphone 0.5 MG/0.5 ML SYRINGE IVP STA (17:42)
[2018-10-11 19:22] VITALS: BP 149/75; PULSE 56; RESP 17; TEMP 98.1
== END 2018-10-11 19:22 ==
LOC: EC 13:56
DX: G97.1 Other reaction to spinal and lumbar puncture (principal); Z79.1 Long term (current) use of non-steroidal anti-inflammatories (NSAID)
CPT/HCPCS: 99283; 96365; 96375 ×3; J1200; J2405; J1170

== ENCOUNTER 2018-10-13 11:51 | Observation (INO) | payer BC ==
[2018-10-13] MEDS ORDERED: CAFFEINE-SODIUM BENZOATE 500 MG in SODIUM CHLORIDE 0.9% 1,000 ML IVPB ONE (12:11)
[2018-10-13] MEDS ORDERED: diphenhydrAMINE 50 MG/ML 1 ML VIAL IVP STA (12:13)
[2018-10-13] MEDS ORDERED: METOCLOPRAMIDE 5 MG/ML 2 ML VIAL IVP STA (12:13)
--- NOTE | 2018-10-13 12:15 | ED ---
Headache HPI - General Source: patient, family, RN notes reviewed Mode of arrival: wheelchair Limitations: no limitations <Jose David Leslie - Last Filed: 10/13/18 14:15> <Fuentes Romero - Last Filed: 10/15/18 11:07> - General Chief Complaint: Headache Stated Complaint: spinal headache Time Seen by Provider: 10/13/18 12:00 - History of Present Illness Initial Comments: This a 43-year-old female presents emergency Department chief complaint of headache. Patient was seen here in emergency department twice last few days. Patient did have a lumbar puncture. Patient had lab work which is old and negative. Patient was seen by neurologist today and sent here for blood patch. Patient's headache is positional. He has much worse when she stands up. She has nausea no vomiting she does have mild light sensitivity. No fevers or chills. Denies any neck stiffness. Patient did receive injections shot by ne urologist. Patient was seen here 2 days ago for this headache and which she received caffeine and fluids with no relief (Jose David Leslie) - Related Data Home Medications Medication Instructions Recorded Confirmed No Known Home Medications 02/04/18 10/11/18 Allergies Allergy/AdvReac Type Severity Reaction Status Date / Time No Known Allergies Allergy Verified 10/13/18 11:57 Review of Systems ROS Other: All systems not noted in ROS Statement are negative. <Jose David Leslie - Last Filed: 10/13/18 14:15> ROS Other: All systems not noted in ROS Statement are negative. <Fuentes Romero - Last Filed: 10/15/18 11:07> ROS Statement: Those systems with pertinent positive or pertinent negative responses have been documented in the HPI. Past Medical History Past Medical History: No Reported History, Syncope Additional Past Medical History / Comment(s): migraine headaches History of Any Multi-Drug Resistant Organisms: None Reported Past Surgical History: Breast Surgery Additional Past Surgical History / Comment(s): wisdom teeth removed 2007, patient had a D&C and a breast biopsy. Past Anesthesia/Blood Transfusion Reactions: No Reported Reaction Past Psychological History: Depression Smoking Status: Former smoker Past Alcohol Use History: Occasional Past Drug Use History: None Reported <Jose David Leslie - Last Filed: 10/13/18 14:15> General Exam Limitations: no limitations General appearance: alert, in no apparent distress Head exam: Present: atraumatic, normocephalic, normal inspection Eye exam: Present: normal appearance, PERRL, EOMI. Absent: scleral icterus, co njunctival injection, periorbital swelling ENT exam: Present: normal exam, mucous membranes moist Neck exam: Present: normal inspection, full ROM. Absent: tenderness, meningismus, lymphadenopathy Respiratory exam: Present: normal lung sounds bilaterally. Absent: respiratory distress, wheezes, rales, rhonchi, stridor Cardiovascular Exam: Present: regular rate, normal rhythm, normal heart sounds. Absent: systolic murmur, diastolic murmur, rubs, gallop, clicks Neurological exam: Present: alert, oriented X3, CN II-XII intact, reflexes normal. Absent: motor sensory deficit Skin exam: Present: warm, dry, intact, normal color. Absent: rash <Jose David Leslie - Last Filed: 10/13/18 14:15> Course Vital Signs 10/13/18 10/13/18 10/13/18 11:54 12:19 14:10 Temperature 98.5 F 98.2 F 99.2 F Pulse Rate 73 57 L 60 Respiratory 18 16 18 Rate Blood Pressure 158/69 149/85 149/77 O2 Sat by Pulse 98 97 99 Oximetry Medical Decision Making - Lab Data Result diagrams: 10/13/18 13:00 10/13/18 13:00 <Jose David Leslie - Last Filed: 10/13/18 14:15> - Lab Data Result diagrams: 10/13/18 13:00 10/13/18 13:00 <Fuentes Romero - Last Filed: 10/15/18 11:07> - Medical Decision Making 43-year-old female presented first mild headache. Patient's symptoms are consistent with this. Patient did have lab work which is unremarkable. Patient will be sent to recovery for blood patch and discharge there. Patient agrees this plan. (Jose David Leslie) 43-year-old female with headache status post lumbar puncture. Symptoms have been present for approximately 4 days. She is given caffeine, symptomatically treatment for headache in emergency prompt. Anesthesia was contacted who is able to place a lumbar blood patch. [facility] department for procedure. (Fuentes Romero) - Lab Data Lab Results 10/13/18 10/13/18 10/13/18 Range/Units 13:00 13:00 13:00 WBC 6.9 (3.8-10.6) k/uL RBC 4.85 (3.80-5.40) m/uL Hgb 14.7 (11.4-16.0) gm/dL Hct 43.7 (34.0-46.0) % MCV 90.1 (80.0-100.0) fL MCH 30.3 (25.0-35.0) pg MCHC 33.6 (31.0-37.0) g/dL RDW 13.4 (11.5-15.5) % Plt Count 220 (150-450) k/uL Neutrophils % 75 % Lymphocytes % 18 % Monocytes % 4 % Eosinophils % 1 % Basophils % 0 % Neutrophils # 5.2 (1.3-7.7) k/uL Lymphocytes # 1.3 (1.0-4.8) k/uL Monocytes # 0.3 (0-1.0) k/uL Eosinophils # 0.1 (0-0.7) k/uL Basophils # 0.0 (0-0.2) k/uL Sodium 139 (137-145) mmol/L Potassium 4.3 (3.5-5.1) mmol/L Chloride 106 (98-107) mmol/L Carbon Dioxide 25 (22-30) mmol/L Anion Gap 8 mmol/L BUN 16 (7-17) mg/dL Creatinine 0.82 (0.52-1.04) mg/dL Est GFR (CKD-EPI)AfAm >90 (>60 ml/min/1.73 sqM) Est GFR (CKD-EPI)NonAf 89 (>60 ml/min/1.73 sqM) Glucose 93 (74-99) mg/dL Calcium 9.8 (8.4-10.2) mg/dL HCG, Quant <2.4 mIU/mL Disposition <Jose David Leslie - Last Filed: 10/13/18 14:15> <Fuentes Romero - Last Filed: 10/15/18 11:07> Clinical Impression: Spinal headache Disposition: ADMITTED IP TO THIS HOSP Condition: Stable
[2018-10-13] MEDS ORDERED: SODIUM CHLORIDE 0.9% 1,000 ML IV ONE ×2 (12:22→15:33)
[2018-10-13 13:15] LABS: Basophils % (A) 0 %; Eosinophils # (A) 0.1 k/uL (0-0.7); Eosinophils % (A) 1 %; HCT 43.7 % (34.0-46.0); HGB 14.7 gm/dL (11.4-16.0); Lymphocytes # (A) 1.3 k/uL (1.0-4.8); Lymphocytes % (A) 18 %; MCH 30.3 pg (25.0-35.0); MCHC 33.6 g/dL (31.0-37.0); MCV 90.1 fL (80.0-100.0); Mean Platelet Volume 7.5; Monocytes # (A) 0.3 k/uL (0-1.0); Monocytes % (A) 4 %; Neutrophils # (A) 5.2 k/uL (1.3-7.7); Neutrophils % (A) 75 %; Platelet Count 220 k/uL (150-450); RBC 4.85 m/uL (3.80-5.40); RDW 13.4 % (11.5-15.5); WBC 6.9 k/uL (3.8-10.6)
[2018-10-13 13:36] LABS: African American GFR (CKD) >90 (>60 ml/min/1.73 sqM); Anion Gap 8 mmol/L; Blood Urea Nitrogen 16 mg/dL (7-17); Calcium 9.8 mg/dL (8.4-10.2); Carbon Dioxide 25 mmol/L (22-30); Chloride 106 mmol/L (98-107); Glucose 93 mg/dL (74-99); Potassium 4.3 mmol/L (3.5-5.1); Sodium 139 mmol/L (137-145)
[2018-10-13 14:13] VITALS: RESP 18; TEMP 99.2
[2018-10-13] MEDS ORDERED: MIDAZOLAM (PF) 2 MG/2 ML VIAL IV ONE (14:55)
[2018-10-13] MEDS ORDERED: fentaNYL (PF) 50 MCG/ML 2 ML AMP IV ONE (14:56)
--- NOTE | 2018-10-13 15:05 | CT ---
EXAMINATION TYPE: CT angio COW [place] DATE OF EXAM: 10/13/2018 2:17 PM COMPARISON: 10/10/2018 HISTORY: Headache post lumbar puncture CT DLP: 1636 mGycm Automated exposure control for dose reduction was used. TECHNIQUE: Performed without and with IV Contrast, patient injected with 100 mL of Isovue 370. . FINDINGS: Noncontrast CT is performed through the brain. No suspicious hyperintensity is present to suggest an acute intracranial hemorrhage. Ventricles and sulci are appropriate for the patient age. No temporal horn dilatation is evident. Following contrast administration 3-D reconstructed images are performed by the technologist on a [employer] computer. No suspicious enhancement is evident. [place]: Internal carotid arteries bifurcate into A1 and M1 segments normally. A2 segments a ppear unremarkable. Middle cerebral arteries are unremarkable. Vertebral basilar system appears rula l. Posterior cerebral vasculature is normal. Three-D reconstructed images performed separately by the technologist are reviewed. A right posterior communicating artery is patent. Anterior communicating artery is patent. No aneurysmal dilatation is evident. IMPRESSION: 1. CTA [place] APPEARS NORMAL. 2. PRELIM POSTCONTRAST CT BRAIN APPEARS WITHIN NORMAL LIMITS
--- NOTE | 2018-10-13 15:08 | P.PN ---
Progress Note - Text 10/13 0466 43-year-old female status post a spinal tap, presented in the ER with a postural headache. Patient seen and evaluated in the ER and consented for an epidural blood patch, patient brought up to the recovery room. Patient's history and physical was done risks and benefits were explained patient agreed to an epidural blood patch. Patient positioned sterile prep and drape done 19-gauge Touhy needle was used at L3 4 after local injection. Epidural space was located with loss of resistance was positive, I liz 15 mL of patient's blood after sterile prep and in a sterile fashion and injected into the epidural space. Site was cleaned and a Band-Aid was applied patient was given discharge instructions.
[2018-10-13] MEDS ORDERED: IV FLUID CONTINUATION 1,000 ML IV ONE (16:06)
[2018-10-13 16:09] VITALS: BP 135/60; PULSE 63
== END 2018-10-13 16:10 | disposition home or self-care (01) ==
LOC: EC 11:51 → 1SOBS 14:19
PROVIDERS: ADMIT Anesthesiology; ATTEND Anesthesiology
DX: G97.1 Other reaction to spinal and lumbar puncture (principal); G43.909 Migraine, unspecified, not intractable, without status migrainosus; F32.9 Major depressive disorder, single episode, unspecified; Z87.891 Personal history of nicotine dependence; Z86.79 Personal history of other diseases of the circulatory system; Y84.4 Aspiration of fluid as the cause of abnormal reaction of the patient, or of later complication, without mention of misadventure at the time of the procedure
CPT/HCPCS: 96361; 96374; 96375; 99285; 36415; 62273; 80048; 85025; 84702; 70496; G0378; J1200; J2765; J3010; Q9967; J2250

== ENCOUNTER → 2018-11-18 | Outpatient (CLI) | payer BC ==
--- NOTE | 2018-11-18 14:06 | MR ---
EXAMINATION TYPE: MR angio neck wo/w con DATE OF EXAM: 11/18/2018 COMPARISON: CT [facility] [place] dated 10/13/[address] [facility] chest dated 01/27/2018 HISTORY: Altered consciousness, numbness albert upper extremities, [place] CONTRAST: Standard multiplanar, multisequence MRA of the neck with and without contrast was performed per [facility] protocol utilizing 7 mL intravenous Gadavist gadolinium contrast for the contrast-enhanced po rtion of the exam. 3-D reconstructed images were obtained at a separate workstation and submitted for review. FINDINGS: There is a conventional three-vessel branch greater than the aortic arch. The common caroti d arteries, cervical portions of the internal carotid arteries, and proximal visualized portions of t he external carotid arteries are patent without hemodynamically significant stenosis. No dissection o r focal occlusion. There is dominance of the left vertebral artery in comparison to the right. There is confluence of these vessels to form a patent and unremarkable basilar artery that separates into p osterior communicating arteries appropriately. The visualized portions of the intracranial internal c arotid arteries appear grossly patent although only visualized to the cavernous portions. [place] is not visualized and cannot be evaluated. No aneurysmal outpouching of the major arterial vasc ulature of the neck is seen. IMPRESSION: No hemodynamically significant stenosis, focal occlusion, or dissection of the major arterial vascula ture of the neck. No aneurysmal outpouching.
--- NOTE | 2018-11-18 14:13 | MR ---
EXAMINATION TYPE: MR cervical spine wo/w con DATE OF EXAM: 11/18/2018 COMPARISON: MRA of the neck of the same date HISTORY: Neck pain TECHNIQUE: Multiplanar, multisequence images of the cervical spine were acquired utilizing 7 mL intravenous Gada vist gadolinium contrast. Diffusion weighted imaging was performed. FINDINGS: Cervical spine vertebral bodies maintain normal vertebral body heights and alignment, howev er there is multilevel disc desiccation is seen. Bone marrow signal is within normal limits. Although the right vertebral flow void is not maintained the MRA of the neck does opacify the right vertebral artery, although diminutive in comparison the left. Left vertebral artery is dominant. Additionally on the contrast enhanced portion examination there is opacification of the right vertebral artery. C2-C3: Disc desiccation is seen without spinal canal stenosis nor neural foraminal narrowing. No foca l disc herniation. C3-C4: There is a broad-based disc bulge without spinal canal stenosis nor neural foraminal narrowing . C4-C5: Small broad-based disc bulge without spinal canal stenosis nor neural foraminal narrowing. C5-C6: Mild facet arthropathy and uncovertebral hypertrophy are seen creating mild left neural forami nal narrowing. Broad-based disc bulge minimally narrows the ventral subarachnoid space without signif icant spinal canal stenosis. No right neural foraminal narrowing. C6-C7: Uncovertebral hypertrophy and facet arthropathy are seen in the left. Very minimal left neural foraminal narrowing. No spinal canal stenosis nor right neural foraminal narrowing. C7-T1: No significant disc disease, spinal canal stenosis, nor neural foraminal narrowing. No abnormal enhancement is seen in the cervical spine were cervical spinal cord. IMPRESSION: 1. Mild multilevel degenerative disc disease of the cervical spine without focal disc herniation. Deg enerative disc disease crating mild left neural foraminal narrowing at C5-C6 and minimal left neural foraminal narrowing at C6-C7. 2. No abnormal enhancement of the cervical spine nor cervical spinal cord. 3. Diminutive caliber of the right vertebral artery is noted with dominance on the left, findings are likely congenital.
== END | disposition home or self-care (01) ==
LOC: RADMRIMAIN 06:25
PROVIDERS: ATTEND Psychiatry & Neurology Neurology
DX: M48.02 Spinal stenosis, cervical region (principal); M50.322 Other cervical disc degeneration at C5-C6 level; R41.82 Altered mental status, unspecified; R20.0 Anesthesia of skin; R51 Headache
CPT/HCPCS: 70549; 72156; A9585

== ENCOUNTER → 2018-11-26 | Outpatient (CLI) | payer BC ==
--- NOTE | 2018-11-27 12:31 | MR ---
EXAMINATION TYPE: MR angio head wo con DATE OF EXAM: 11/26/2018 COMPARISON: CT [place] 10/13/2018 HISTORY: Dizziness and headaches TECHNIQUE: Time of flight images focusing on the [place] were performed without contrast. FINDINGS: Left vertebral artery is dominant and the vertebral arteries are patent. Anterior posterior circulation is patent. There is no evident aneurysm, dissection, or embolus. IMPRESSION: Normal [place] MRA
--- NOTE | 2018-11-27 12:39 | MR ---
EXAMINATION TYPE: MR brain wo/w con DATE OF EXAM: 11/26/2018 COMPARISON: CT brain 10/10/2018 HISTORY: Dizziness and headaches TECHNIQUE: Multiplanar, multisequence images of the brain and brainstem is performed without and with IV contras t, utilizing 7 mL intravenous Gadavist . FINDINGS: Diffusion weighted images demonstrate no evidence of a recent infarct or other diffusion ab normality. There is no extra-axial fluid collection or significant white matter signal abnormality. The ventricular system and cisternal spaces are normal in size and appearance. The brain volume is age appropriate. Midline structures demonstrate normal morphology. The craniocervical junction appears within normal limits. Post contrast images demonstrate no abnormal enhancement. The dural venous sinuses appear pa tent. The visualized sinuses are clear and the globes are intact. IMPRESSION: Normal brain MRI
== END | disposition home or self-care (01) ==
LOC: RADMRIMAIN 09:53
PROVIDERS: ATTEND Psychiatry & Neurology Neurology
DX: R41.82 Altered mental status, unspecified (principal); R51 Headache; R20.2 Paresthesia of skin
CPT/HCPCS: 70544; 70553; A9585

== ENCOUNTER → 2020-10-02 | Outpatient (CLI) | payer BC ==
--- NOTE | 2020-10-03 08:26 | MM ---
Reason for exam: clinical finding. Last mammogram was performed 2 years and 3 months ago. History: Patient had first child at age 33. Family history of breast cancer in maternal grandmother. Benign excisional biopsy of the right breast, 2012. Indicated problem(s): pain in the right breast. Physical Findings: Nurse did not find any significant physical abnormalities on exam. MG 3D Diag Mammo W/Cad SEBASTIEN Bilateral CC and MLO view(s) were taken. Prior study comparison: June 24, 2018, bilateral MG 3d screening mammo w/cad. February 24, 2012, mammogram, performed at [facility]. The breast tissue is extremely dense which could obscure a lesion on mammography. No significant new findings when compared with previous films. These results were verbally communicated with the patient and result sheet given to the patient on 10/02/20. ASSESSMENT: Benign, BI-RAD 2 RECOMMENDATION: Routine screening mammogram of both breasts in 1 year.
== END | disposition home or self-care (01) ==
LOC: RADMAMWWP 14:56
PROVIDERS: ATTEND Obstetrics & Gynecology
DX: N64.4 Mastodynia (principal); Z80.3 Family history of malignant neoplasm of breast; Z98.890 Other specified postprocedural states
CPT/HCPCS: 77062; 77066